=== PATIENT | male | born 1980 | race Caucasian/White ===

== ENCOUNTER 2016-11-30 07:12 | Day surgery (SDC) | payer OTHER ==
[~2016-11-30] VITALS: Ht 176.5 cm; Wt 64.4 kg
== END 2016-11-30 09:00 | disposition short-term general hospital (02) ==
LOC: SURGOP 07:12
PROC: 0DB78ZX Excision of Stomach, Pylorus, Via Natural or Artificial Opening Endoscopic, Diagnostic (ICD-10-PCS; principal; 2016-11-30)
DX: K44.9 Diaphragmatic hernia without obstruction or gangrene (principal); R10.13 Epigastric pain; Z87.891 Personal history of nicotine dependence; Z79.899 Other long term (current) drug therapy; Z90.49 Acquired absence of other specified parts of digestive tract
CPT/HCPCS: J2175; J2250